=== PATIENT | male | born 1995 | race Caucasian/White ===

== ENCOUNTER 2017-12-28 09:43 | Emergency (ER) | payer BC ==
[~2017-12-28] VITALS: Ht 188 cm; Wt 68.0 kg
[2017-12-28 09:43] VITALS: BP 145/73; PULSE 90; RESP 18; TEMP 97.8; O2SAT 97
[2017-12-28] MEDS ORDERED: LANTUS2P SQ (09:59)
[2017-12-28] MEDS ORDERED: NOVOINJ SQ (09:59)
[2017-12-28 10:09] LABS: AUTOMATED NEUTROPHIL # 4.8 TH/MM3 (1.8-7.7); BASOPHIL # 0.3 TH/MM3 (0-0.2); BASOPHIL % 4.2 % (0.0-2.0); EOSINOPHIL # 0.1 TH/MM3 (0-0.4); EOSINOPHIL % 1.1 % (0.0-4.0); HEMOGLOBIN 14.6 GM/DL (13.0-17.0); LYMPH % 10.5 % (9.0-44.0); LYMPHOCYTE # 0.7 TH/MM3 (1.0-4.8); MEAN CELL VOLUME 87.3 FL (80.0-100.0); MEAN CORPUSCULAR HEMOGLOBIN 29.6 PG (27.0-34.0); MEAN CORPUSCULAR HGB CONC 33.9 % (32.0-36.0); MONO % 7.1 % (0.0-8.0); MONOCYTE # 0.4 TH/MM3 (0-0.9); NEUT % 77.1 % (16.0-70.0); PLATELET COUNT 198 TH/MM3 (150-450); RED BLOOD COUNT 4.93 MIL/MM3 (4.50-5.90); RED CELL DISTRIBUTION WIDTH 11.9 % (11.6-17.2); WHITE BLOOD COUNT 6.3 TH/MM3 (4.0-11.0)
[2017-12-28 10:26] LABS: CALCIUM 8.3 MG/DL (8.5-10.1)
[2017-12-28 10:27] LABS: BICARBONATE 26.1 MEQ/L (21.0-32.0)
[2017-12-28 10:30] LABS: CREATININE 0.95 MG/DL (0.60-1.30)
--- NOTE | 2017-12-28 10:42 | PD ---
HPI Chief Complaint: Diabetic Time Seen by Provider: 09:49 Travel History International Travel<30 days: No Contact w/Intl Traveler<30days: No Traveled to known affect area: No History of Present Illness HPI This 22-year-old male was brought by paramedics. They were called because he was having some tonic-clonic activity. The patient has a history of diabetes since the age of 17. The paramedics found his sugar to be 46. He was given D50 and his sugar has come up. The patient had not eaten or taken his insulin this morning. He himself does not remember the activities. He is here with his friend who witnessed them and she indicates that he was frothing of the mouth and having tonic-clonic movement he has never had a seizure. He does not suffer from headaches. He is a college student here on spring. He has had some alcohol but not excessive. He does not remember some of the activities from earlier in the week. PFSH Past Medical History Diabetes: Yes Patient Takes Glucophage: No Past Surgical History Surgical History: No Previous Surgery Social History Alcohol Use: Yes (OCCAS) Tobacco Use: No Substance Use: No Allergies-Medications (Allergen,Severity, Reaction): Coded Allergies: No Known Allergies (Unverified , 12/28/17) Reported Meds & Prescriptions Reported Meds & Active Scripts Active Reported Novolog Penfill Inj (Insulin Aspart) 300 Unit/3 Ml Pen 2-10 Units SQ TIDAC PRN Lantus Inj (Insulin Glargine) 1,000 Unit/10 Ml Vial 20 Units SQ HS Review of Systems General / Constitutional: No: Fever, Chills Eyes: No: Diploplia, Blurred Vision HENT: No: Headaches, Vertigo Cardiovascular: No: Chest Pain or Discomfort, Palpitations Respiratory: No: Cough, Shortness of Breath Gastrointestinal: No: Vomiting, Diarrhea Genitourinary: No: Urgency, Frequency Musculoskeletal: No: Myalgias Skin: No Rash, No Itching Neurologic: No: Weakness, Dizziness Endocrine: No: Heat Intolerance, Cold Intolerance Hematologic/Lymphatic: No: Easy Bruising Physical Exam Narrative GENERAL: Well-developed male SKIN: Focused skin assessment warm/dry. HEAD: Atraumatic. Normocephalic. EYES: Pupils equal and round. No scleral icterus. No injection or drainage. ENT: No nasal bleeding or discharge. Mucous membranes pink and moist. NECK: Trachea midline. No JVD. CARDIOVASCULAR: Regular rate and rhythm. No murmur appreciated. RESPIRATORY: No accessory muscle use. Clear to auscultation. Breath sounds equal bilaterally. GASTROINTESTINAL: Abdomen soft, non-tender, nondistended. Hepatic and splenic margins not palpable. MUSCULOSKELETAL: No obvious deformities. No clubbing. No cyanosis. No edema. NEUROLOGICAL: Awake and alert. No obvious cranial nerve deficits. Motor grossly within normal limits. Normal speech. PSYCHIATRIC: Appropriate mood and affect; insight and judgment normal. Data Data Last Documented VS Vital Signs Date Time Temp Pulse Resp B/P (MAP) Pulse Ox O2 Delivery O2 Flow Rate FiO2 12/28/17 09:53 Room Air 12/28/17 09:43 97.8 90 18 145/73 (97) 97 Orders Orders Complete Blood Count With Diff (12/28/17 09:54) Basic Metabolic Panel (Bmp) (12/28/17 09:54) Ct Brain W/O Iv Contrast(Rout) (12/28/17 10:28) Insulin Human Regular Inj (Novolin R Inj (12/28/17 11:45) Labs Laboratory Tests Test 12/28/17 10:05 White Blood Count 6.3 TH/MM3 Red Blood Count 4.93 MIL/MM3 Hemoglobin 14.6 GM/DL Hematocrit 43.0 % Mean Corpuscular Volume 87.3 FL Mean Corpuscular Hemoglobin 29.6 PG Mean Corpuscular Hemoglobin Concent 33.9 % Red Cell Distribution Width 11.9 % Platelet Count 198 TH/MM3 Mean Platelet Volume 8.0 FL Neutrophils (%) (Auto) 77.1 % Lymphocytes (%) (Auto) 10.5 % Monocytes (%) (Auto) 7.1 % Eosinophils (%) (Auto) 1.1 % Basophils (%) (Auto) 4.2 % Neutrophils # (Auto) 4.8 TH/MM3 Lymphocytes # (Auto) 0.7 TH/MM3 Monocytes # (Auto) 0.4 TH/MM3 Eosinophils # (Auto) 0.1 TH/MM3 Basophils # (Auto) 0.3 TH/MM3 CBC Comment DIFF FINAL Differential Comment Blood Urea Nitrogen 14 MG/DL Creatinine 0.95 MG/DL Random Glucose 183 MG/DL Calcium Level 8.3 MG/DL Sodium Level 139 MEQ/L Potassium Level 3.6 MEQ/L Chloride Level 104 MEQ/L Carbon Dioxide Level 26.1 MEQ/L Anion Gap 9 MEQ/L Estimat Glomerular Filtration Rate 100 ML/MIN MDM Medical Decision Making Medical Screen Exam Complete: Yes Emergency Medical Condition: Yes Medical Record Reviewed: Yes Differential Diagnosis Differential includes seizure, hypoglycemia, Narrative Course Patient did have hypoglycemia and I suspect that is the cause of his seizure type activity. I have ordered a CT scan because he has been a little slow in recalling some events of the week. I do not find any focal motor weakness. CT scan has been read as negative. He has eaten well. He is stable for discharge. He is returning to [place] today I have advised that he should not be driving. I do not think seizure medication is warranted as the active seizure type activity was most likely secondary to hypoglycemia. Diagnosis Primary Impression: Hypoglycemia Disposition: 01 DISCHARGE HOME Condition: Stable Yeison Terrell MD Dec 28, 2017 10:42
--- NOTE | 2017-12-28 11:38 | RADRPT ---
EXAM DATE/TIME: 12/28/2017 11:17 [facility] COMPARISON: No previous studies available for comparison. INDICATIONS : Altered mental status. Possible seizure. Cephalgia. RADIATION DOSE: 64.02 CTDIvol (mGy) MEDICAL HISTORY : Diabetes. SURGICAL HISTORY : None. ENCOUNTER: Initial ACUITY: 1 day PAIN SCALE: 6/10 LOCATION: cranial TECHNIQUE: Multiple contiguous axial images were obtained of the head. Using automated exposure control and adj ustment of the mA and/or kV according to patient size, radiation dose was kept as low as reasonably a chievable to obtain optimal diagnostic quality images. DICOM format image data is available electro nically for review and comparison. FINDINGS: CEREBRUM: The ventricles are normal for age. No evidence of midline shift, mass lesion, hemorrhage or acute in farction. No extra-axial fluid collections are seen. POSTERIOR FOSSA: The cerebellum and brainstem are intact. The 4th ventricle is midline. The cerebellopontine angle i s unremarkable. EXTRACRANIAL: The visualized portion of the orbits is intact. SKULL: The calvaria is intact. No evidence of skull fracture. CONCLUSION: No acute intracranial abnormality. Vamsi Mahan MD on December 28, 2017 at 11:33 Board Certified Radiologist. This report was verified electronically.
[2017-12-28] MEDS ORDERED: INSULIN HUMAN REGULAR 1,000 UNITS/10 ML VIAL SQ ONE (11:45)
== END 2017-12-28 12:59 | disposition home or self-care (01) ==
LOC: PHED 09:43
DX: E10.649 Type 1 diabetes mellitus with hypoglycemia without coma (principal); Z79.4 Long term (current) use of insulin
CPT/HCPCS: 70450; 80048; 85025; 96372; 99284; J1815